=== PATIENT | male | born 1990 | race Caucasian/White ===

== ENCOUNTER 2017-07-07 17:34 | Emergency (ER) | payer SELFPAY ==
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
[2017-07-07 17:46] VITALS: BP 133/73
== END 2017-07-07 17:50 ==
LOC: MW.ED 17:34
DX: Z02.89 Encounter for other administrative examinations (principal); F17.210 Nicotine dependence, cigarettes, uncomplicated
CPT/HCPCS: 99282